=== PATIENT | male | born 2005 | race Caucasian/White ===

== ENCOUNTER 2025-10-06 10:48 | Emergency (ER) | payer OTHER | END 2025-10-06 12:52 | disposition home or self-care (01) | LOC: MW.ED 10:48 | DX: S62.336A Displaced fracture of neck of fifth metacarpal bone, right hand, initial encounter for closed fracture (principal); W23.1XXA Caught, crushed, jammed, or pinched between stationary objects, initial encounter; Y93.89 Activity, other specified | CPT/HCPCS: 29125; 73130-26-RT; 73130-RT; 99283 ==

== ENCOUNTER 2025-10-08 10:02 | Day surgery (SDC) | payer OTHER ==
[~2025-10-08 10:02] MED LIST: Albuterol 0.083% 2.5 MG/3 ML Neb Soln NEB PRN; Naloxone 0.4 MG/ML SDV IVPUSH PRN; Ondansetron 4 MG/2 ML SDV IVPUSH PRN; ceFAZolin 2 GM in Water For Injection, Sterile 20 ML IVPUSH ONE; fentaNYL 50 MCG/ML SDV IVPUSH PRN
[2025-10-08] MEDS ORDERED: Ondansetron 4 MG/2 ML SDV ONE (10:26)
[2025-10-08] MEDS ORDERED: Propofol 200 MG/20 ML SDV ONE (10:31)
[2025-10-08] MEDS ORDERED: Midazolam 1 MG/ML 2 ML SDV ONE (10:31)
[2025-10-08] MEDS ORDERED: fentaNYL 100 MCG/2 ML SDV ONE (10:31)
[2025-10-08] MEDS ORDERED: Ropivacaine 0.5% 5 MG/ML 30 ML SDV ONE (10:33)
[2025-10-08] MEDS: Lactated Ringers 1,000 ML IV SCH (10:38)
[2025-10-08] MEDS ORDERED: dexmedeTOMIDine HCl 200 MCG/2 ML SDV ONE (11:56)
== END 2025-10-08 13:00 | disposition home or self-care (01) ==
LOC: MW.SDS 10:02
PROVIDERS: ATTEND Orthopaedic Surgery
DX: S62.306A Unspecified fracture of fifth metacarpal bone, right hand, initial encounter for closed fracture (principal); W22.8XXA Striking against or struck by other objects, initial encounter; F17.200 Nicotine dependence, unspecified, uncomplicated
CPT/HCPCS: 26608; 64450; 76000; J0690; J2250; J2405; J2704; J2795; J3010; J7120; J7999; 01820; J2371